=== PATIENT | male | born 1965 | race African-American/Black ===

== ENCOUNTER 2017-05-13 23:31 | Emergency (ER) | payer OTHER ==
[~2017-05-13] VITALS: Ht 182.9 cm; Wt 98.0 kg
[2017-05-13 23:35] VITALS: BP 145/89; PULSE 99; TEMP 97.8; O2SAT 95
[2017-05-14] MEDS ORDERED: IBUPROFEN 800 MG TAB PO ONE (00:15)
--- NOTE | 2017-05-14 00:17 | PD ---
HPI Chief Complaint: Injury Time Seen by Provider: 23:57 Travel History International Travel<30 days: No Contact w/Intl Traveler<30days: No Traveled to known affect area: No History of Present Illness HPI 51-year-old black male presents MRSA normal complains of right knee pain after stepping in a hole this evening all at work. He states that he was walking through the grass when he stepped in a hole twisting his knee. He denies falling to the ground. He denies any numbness, tingling or weakness. He states the pain is worse on the medial last or his knee. History of a prior injury. [facility] Past Medical History Medical History: Denies Significant Hx Diminished Hearing: No Tetanus Vaccination: Unknown Influenza Vaccination: No Past Surgical History Surgical History: No Previous Surgery Social History Alcohol Use: Yes ([facility]) Tobacco Use: No Substance Use: No Allergies-Medications (Allergen,Severity, Reaction): Coded Allergies: No Known Allergies (Unverified , 05/13/17) Reported Meds & Prescriptions Reported Meds & Active Scripts Active No Active Prescriptions or Reported Medications Review of Systems General / Constitutional: No: Fever Eyes: No: Visual changes HENT: No: Headaches Cardiovascular: No: Chest Pain or Discomfort Respiratory: No: Shortness of Breath Gastrointestinal: No: Abdominal Pain Genitourinary: No: Dysuria Musculoskeletal: Positive: Arthralgias, Limited ROM, Pain, No: Edema Skin: No Rash Neurologic: No: Weakness Psychiatric: No: Depression Endocrine: No: Polydipsia Hematologic/Lymphatic: No: Easy Bruising Physical Exam Narrative GENERAL: This is a well-nourished, well-developed patient, in no apparent distress. SKIN: No rashes, ecchymoses or lesions. Warm and dry. HEAD: Atraumatic. Normocephalic. EYES: PERRL, EOMI, no discharge or injection. No scleral icterus. EARS: Clear NOSE: Nasal turbinates appear normal. THROAT: Mucosa pink and moist. Airway patent. NECK: Trachea midline. supple, moves head freely. LUNGS: Clear to auscultation. CV: Regular in rhythm. ABDOMEN: Soft nontender. EXT: No clubbing cyanosis or edema. Examination of the left lower extremity is unremarkable. Examination the right lower extremity reveals tenderness to the medial collateral ligament but no gross instability. No anterior posterior draw. No lateral collateral ligament instability or pain. Data Data Last Documented VS Vital Signs Date Time Temp Pulse Resp B/P (MAP) Pulse Ox O2 Delivery O2 Flow Rate FiO2 05/13/17 23:35 97.8 99 145/89 (107) 95 Room Air Orders Orders Knee, Complete (4vws) (05/13/17 23:56) Ice/Cold Pack (05/13/17 23:56) Splint Or Brace Apply/Monitor (05/14/17 00:02) Ibuprofen (Motrin) (05/14/17 00:15) Ed Discharge Order (05/14/17 00:17) MDM Medical Decision Making Medical Screen Exam Complete: Yes Emergency Medical Condition: Yes Medical Record Reviewed: Yes Interpretation(s) Right knee: Negative for acute bony injury. No joint effusion. Patient has tricompartment arthritis. Old injury. Nothing appeared acute. Differential Diagnosis MDM: High Differential diagnoses: Fracture, sprain, strain, dislocation, contusion, neurovascular injury Narrative Course Patient is given Motrin 800 mg by mouth. Joaquín wrap. X-rays negative. This is right knee sprain Diagnosis Primary Impression: right knee sprain Patient Instructions: General Instructions Additional Instructions: Rest. Elevation. Ice packs for the next 3 days. Joaquín wrap. Limits weight-bearing. Medications as directed Follow-up with work comp in one week. Return to the ER if any problems Med/Other Pt SpecificInfo: Prescription(s) given Scripts No Active Prescriptions or Reported Meds Disposition: 01 DISCHARGE HOME Condition: Stable Geoff Rubio May 14, 2017 00:16
--- NOTE | 2017-05-14 00:27 | RADRPT ---
EXAM DATE/TIME: 05/14/2017 00:07 [facility] COMPARISON: No previous studies available for comparison. INDICATIONS : Right knee pain post knee buckling when stepping in a hole. MEDICAL HISTORY : None. SURGICAL HISTORY : None. ENCOUNTER: Initial ACUITY: 1 day PAIN SCORE: 8/10 LOCATION: Right knee FINDINGS: There is narrowing of the medial joint space. Mild medial osteophytes are present. No acute fracture is seen. No effusion is seen. There is a 2 cm bony density seen adjacent to medial posterior aspect o f the femoral metaphysis just above the femoral condyles likely related to a loose body or prominent hypertrophic change. CONCLUSION: 1. Degenerative change of the medial joint space. 2. Suspected 2 cm loose body or prominent hypertrophic change adjacent to the medial posterior superi or aspect of the femoral condyle. Jayjay Rai MD on May 14, 2017 at 0:23 Board Certified Radiologist. This report was verified electronically.
== END 2017-05-14 00:49 | disposition home or self-care (01) ==
LOC: NEPD 23:31
DX: S83.91XA Sprain of unspecified site of right knee, initial encounter (principal); W18.42XA Slipping, tripping and stumbling without falling due to stepping into hole or opening, initial encounter; Y93.01 Activity, walking, marching and hiking; Y99.0 Civilian activity done for income or pay
CPT/HCPCS: 73564; 99283